=== PATIENT | female | born 1960 | race Caucasian/White ===

== ENCOUNTER 2019-05-17 17:12 | Emergency (ER) | payer BC, MEDICAID ==
[2019-05-17] MEDS ORDERED: Ketorolac 60 MG/2 ML SDV IM ONE (18:02)
--- NOTE | 2019-05-17 18:08 | EDM.PDOC ---
ED HPI GENERAL MEDICAL PROBLEM - General Chief Complaint: Back Pain or Injury Stated Complaint: LOWER BACK PAIN Time Seen by Provider: 05/17/19 17:53 Source of Information: Reports: Patient History Limitations: Reports: No Limitations - History of Present Illness INITIAL COMMENTS - FREE TEXT/NARRATIVE: HISTORY AND PHYSICAL: History of present illness: Patient is a 58-year-old female who presents to the ED today with concern of mid to low back pain 1 week. Patient states she started noticing the back pain while at work as she was bending over and doing dishes at work. Patient states she has been taking Advil which does relieve her symptoms. Patient denies any trauma or injury to her back. Patient denies any loss or retention of bowel and bladder function or saddle anesthesia. Patient denies fever, chills, chest pain, shortness of breath, or cough. Denies headache, neck stiff ness, change in vision, syncope, or near syncope. Denies nausea, vomiting, abdominal pain, diarrhea, constipation, or dysuria. Has not noted any blood in urine or stool. Patient has been eating and drinking appropriately. Review of systems: As per history of present illness and below otherwise all systems reviewed and negative. Past medical history: As per history of present illness and as reviewed below otherwise noncontributory. Surgical history: As per history of present illness and as reviewed below otherwise noncontributory. Social history: See social history for further information Family history: As per history of present illness and as reviewed below otherwise noncontributory. Physical exam: General: Patient is alert, oriented, and in no acute distress. Patient sitting comfortably on exam table. HEENT: Atraumatic, normocephalic, pupils equal and reactive bilaterally, negative for conjunctival pallor or scleral icterus, mucous membranes moist, TMs normal bilaterally, throat clear, neck supple, nontender, trachea midline. No drooling or trismus noted. No meningeal signs. No hot potato voice noted. Lungs: Clear to auscultation, breath sounds equal bilaterally, chest nontender. Heart: S1S2, regular rate and rhythm without overt murmur Abdomen: Soft, nondistended, nontender. Negative for masses or hepatosplenomegaly. Negative for costovertebral tenderness. Pelvis: Stable nontender. Genitourinary: Deferred. Rectal: Deferred. Skin: Intact, warm, dry. No lesions or rashes noted. Extremities: Atraumatic, negative for cords or calf pain. Neurovascular unremarkable. SLR intact bilaterally. Patellar reflexes intact bilaterally. Heel /Toe gait intact. No obvious deformity of the complete spine. No step-offs, crepitus, or point tenderness to palpation of the spinous process of complete spine. Patient does have mild to moderate discomfort of palpation of the paraspinous muscles of the thoracic or lumbar area. Neuro: Awake, alert, oriented. Cranial nerves II through XII unremarkable. Cerebellum unremarkable. Motor and sensory unremarkable throughout. Exam nonfocal. Notes: Dr. Juan verbally involved in patient care. Patient states she was diagnosed with diabetes in the past and was placed on oral medication but had decided to stop taking this medication. Discussed the importance for follow-up with a primary care provider. Voices understanding and is agreeable to plan of care. Denies any further questions or concerns at this time. Diagnostics: UA, lumbar and thoracic x-ray Therapeutics: Toradol, Norflex Prescription: Diclofenac, Flexeril Impression: Thoracolumbar back pain H/O diabetes Plan: 1. Rest, ice and or heat the affected area. You can apply ice and or heat 15 minutes on, 15 minutes off. 2. Tylenol as directed for pain management or discomfort. Take medication as prescribed. 3. Follow up with the primary care provider as discussed. Return to the ED as needed and as discussed. Definitive disposition and diagnosis as appropriate pending reevaluation and review of above. Middle Back Pain Score (Numeric/FACES): 9 - Related Data Allergies Allergy/AdvReac Type Severity Reaction Status Date / Time No Known Allergies Allergy Verified 05/17/19 17:59 Home Meds: Home Meds Cyclobenzaprine [Flexeril] 10 mg PO TID PRN #9 tab 05/17/19 [Rx] Diclofenac Sodium [Voltaren] 75 mg PO BIDMEALS PRN #15 tab.cr 05/17/19 [Rx] Past Medical History - Past Health History Medical/Surgical History: Denies Medical/Surgical History Psychiatric History: Reports: Anxiety Social & Family History - Family History Family Medical History: Noncontributory - Tobacco Use Smoking Status *Q: Current Every Day Smoker Years of Tobacco use: 30 Packs/Tins Daily: 0.3 - Caffeine Use Caffeine Use: Reports: Coffee - Recreational Drug Use Recreational Drug Use: No - Living Situation & Occupation Living situation: Reports: , with Spouse Occupation: Employed ED ROS GENERAL - Review of Systems Review Of Systems: Comprehensive ROS is negative, except as noted in HPI. ED EXAM, GENERAL - Physical Exam Exam: See Below (See dictation) Course - Vital Signs Last Recorded V/S: Last Vital Signs Temp 98.5 F 05/17/19 17:56 Pulse 77 05/17/19 17:56 Resp 18 05/17/19 17:56 BP 155/101 H 05/17/19 17:56 Pulse Ox 97 05/17/19 17:56 - Orders/Labs/Meds Orders: Active Orders 24 hr Category Date Time Status Glucose [Blood Glucose Check, Bedside] [RC] ONETIME Care 05/17/19 18:46 Active Labs: Laboratory Tests 05/17/19 Range/Units 18:30 Urine Color YELLOW Urine Appearance CLEAR Urine pH 6.0 (5.0-8.0) Ur Specific [place] 1.015 (1.001-1.035) Urine Protein NEGATIVE (NEGATIVE) mg/dL Urine Glucose (UA) >=1000 (NEGATIVE) mg/dL Urine Ketones TRACE H (NEGATIVE) mg/dL Urine Occult Blood NEGATIVE (NEGATIVE) Urine Nitrite NEGATIVE (NEGATIVE) Urine Bilirubin NEGATIVE (NEGATIVE) Urine Urobilinogen 1.0 (<2.0) EU/dL Ur Leukocyte Esterase NEGATIVE (NEGATIVE) Meds: Medications Discontinued Medications Generic Name Dose Route Start Last Admin Trade Name Freq PRN Reason Stop Dose Admin Ketorolac Tromethamine 60 mg 05/17/19 18:02 05/17/19 18:26 Toradol IM 05/17/19 18:03 60 mg ONETIME ONE Administration Orphenadrine Citrate 60 mg 05/17/19 18:03 05/17/19 18:23 Norflex IM 05/17/19 18:04 60 mg NOW STA Administration Departure - Departure Time of Disposition: 19:03 Disposition: Home, Self-Care 01 Clinical Impression: Thoracolumbar back pain - Discharge Information Prescriptions: Cyclobenzaprine [Flexeril] 10 mg PO TID PRN #9 tab PRN Reason: Spasms Diclofenac Sodium [Voltaren] 75 mg PO BIDMEALS PRN #15 tab.cr PRN Reason: Pain Referrals: PCP,None [Primary Care Provider] - Forms: ED Department Discharge Additional Instructions: The following information is given to patients seen in the emergency department who are being discharged to home. This information is to outline your options for follow-up care. We provide all patients seen in our emergency department with a follow-up referral. The need for follow-up, as well as the timing and circumstances, are variable depending upon the specifics of your emergency department visit. If you don't have a primary care physician on staff, we will provide you with a referral. We always advise you to contact your personal physician following an emergency department visit to inform them of the circumstance of the visit and for follow-up with them and/or the need for any referrals to a consulting specialist. The emergency department will also refer you to a specialist when appropriate. This referral assures that you have the opportunity for follow-up care with a specialist. All of these measure are taken in an effort to provide you with optimal care, which includes your follow-up. Under all circumstances we always encourage you to contact your private physician who remains a resource for coordinating your care. When calling for follow-up care, please make the office aware that this follow-up is from your recent emergency room visit. If for any reason you are refused follow-up, please contact the [facility] Emergency Department at and asked to speak to the emergency department charge nurse. [facility] [address] [place] [id number] [place] [address] 1. Rest, ice and or heat the affected area. You can apply ice and or heat 15 minutes on, 15 minutes off. 2. Tylenol as directed for pain management or discomfort. Take medication as prescribed. 3. Follow up with the primary care provider as discussed. Return to the ED as needed and as discussed. - My Orders Last 24 Hours: My Active Orders 05/17/19 18:46 Glucose [Blood Glucose Check, Bedside] [] ONETIME - Assessment/Plan Last 24 Hours: My Active Orders 05/17/19 18:46 Glucose [Blood Glucose Check, Bedside] [] ONETIME
--- NOTE | 2019-05-17 19:01 | CR ---
Indication: Pain. Technique: Three views of the thoracic spine were obtained. Comparison: None Findings: The alignment of the thoracic spine is within normal limits. The vertebral body heights are well maintained. Intervertebral disc space heights are well maintained. Impression: No acute fracture. Dictated by Myrtle Leonard MD @ May 17 2019 7:00PM Signed by Dr. Myrtle Leonard @ May 17 2019 7:00PM
--- NOTE | 2019-05-17 19:01 | CR ---
Indication: Pain. Technique: Three views of the lumbar spine were obtained. Comparison: None Findings: 5 millimeters of anterolisthesis of L4 on L5 is identified. The vertebral body heights are well maintained. Facet joint arthropathy of the lower lumbar spine is identified. No fracture or subluxation is identified. Impression: Degenerative change of the lower lumbar spine. Dictated by Myrtle Leonard MD @ May 17 2019 6:59PM Signed by Dr. Myrtle Leonard @ May 17 2019 6:59PM
[2019-05-18 04:03] VITALS: BP 189/107; PULSE 72
== END 2019-05-17 19:16 | disposition home or self-care (01) ==
LOC: MW.ED 17:12
DX: M54.5 Low back pain (principal); F41.9 Anxiety disorder, unspecified; F17.210 Nicotine dependence, cigarettes, uncomplicated; Z79.899 Other long term (current) drug therapy
CPT/HCPCS: 72072; 72100; 81003; 82962; 96372; 99284; J1885; J2360

== ENCOUNTER 2021-09-20 16:38 | Emergency (ER) | payer BC, OTHER ==
[2021-09-20] MEDS ORDERED: Sodium Chloride 0.9% 1,000 ML IV ONE (20:16)
[2021-09-20] MEDS ORDERED: HYDROmorphone 2 MG/ML Syringe IVPUSH ONE (20:59)
[2021-09-20] MEDS ORDERED: Ondansetron 4 MG/2 ML SDV IVPUSH ONE (20:59)
[2021-09-20] MEDS ORDERED: Ketorolac 30 MG/ML SDV IVPUSH ONE (21:02)
[2021-09-20 21:40] LABS: BLOOD UREA NITROGEN,BUN 12 mg/dL (7.0-18.0); CARBON DIOXIDE,CO2 25.4 mmol/L (21.0-32.0); CHLORIDE,CL 98 mmol/L (98-107); GLUCOSE RANDOM 272 mg/dL (74-106); LIPASE 75 U/L (73-393); SODIUM,NA 133 mmol/L (136-145)
[2021-09-20] MEDS ORDERED: Iopamidol 755 MG/ML 500 ML Multipack Bottle IVPUSH STA (22:24)
[2021-09-21] MEDS ORDERED: Ciprofloxacin 500 MG Tab PO ONE (01:34)
[2021-09-21] MEDS ORDERED: Acetaminophen/HYDROcodone 325-5 MG Tab PO ONE (01:35)
[2021-09-21] MEDS ORDERED: metroNIDAZOLE 250 MG Tab PO ONE (01:35)
[2021-09-21 02:01] VITALS: BP 152/95; PULSE 82
== END 2021-09-21 02:01 | disposition home or self-care (01) ==
LOC: MW.ED 16:38
DX: K52.9 Noninfective gastroenteritis and colitis, unspecified (principal); N39.0 Urinary tract infection, site not specified
CPT/HCPCS: 36415; 74178; 80053; 81001; 83605; 83690; 85025; 87040; 87086; 87088; 87186; 96374; 96375; 99284; A9270; J1170; J1885; J2405; J7030; Q9967

== ENCOUNTER 2024-02-02 20:12 | Emergency (ER) | payer SELFPAY ==
[2024-02-02] MEDS: Diazepam 5 MG Tab PO STA (20:45)
[2024-02-02] MEDS: Ibuprofen 600 MG Tab PO ONE (20:46)
[2024-02-02] MEDS: Acetaminophen 500 MG Tab PO ONE (20:46)
[2024-02-02 23:31] VITALS: BP 160/80; PULSE 67
== END 2024-02-02 23:33 ==
LOC: MW.ED 20:12
DX: M62.838 Other muscle spasm (principal); E11.65 Type 2 diabetes mellitus with hyperglycemia
CPT/HCPCS: 82947; 99284; A9270; 99283

== ENCOUNTER 2024-05-07 21:34 | Emergency (ER) | payer SELFPAY ==
[2024-05-07] MEDS ORDERED: Sodium Chloride 0.9% 10 ML Syringe FLUSH PRN (21:58)
[2024-05-07 22:27] LABS: BASOPHILS ABSOLUTE AUTO 0.03 K/uL (0.00-0.20); BASOPHILS PERCENT AUTO 0.5 % (0.0-1.0); EOSINOPHILS ABSOLUTE AUTO 0.09 K/uL (0.00-0.45); EOSINOPHILS PERCENT AUTO 1.6 % (0.0-6.0); HEMOGLOBIN 14.2 g/dL (12.0-16.0); IMMATURE GRAN ABSOLUTE AUTO 0.01 K/uL (0.00-0.05); IMMATURE GRAN PERCENT AUTO 0.2 % (0.0-0.4); LYMPHOCYTES ABSOLUTE AUTO 2.37 K/uL (1.00-4.80); LYMPHOCYTES PERCENT AUTO 41.9 % (24.0-44.0); MEAN CORPUSCULAR HGB CONC 35.5 g/dL (32.0-36.0); MEAN CORPUSCULAR VOLUME 95.7 fL (83.0-99.0); MEAN PLATELET VOLUME 9.4 fL (9.4-12.3); MONOCYTES ABSOLUTE AUTO 0.55 K/uL (0.00-0.80); MONOCYTES PERCENT AUTO 9.7 % (0.0-8.0); NEUTROPHILS PERCENT AUTO 46.1 % (41.0-71.0); PLATELET COUNT,PLT 167 K/uL (150-400); RED BLOOD CELL COUNT 4.18 M/uL (4.10-5.30); WHITE BLOOD CELL COUNT,WBC 5.65 K/uL (3.9-11.3)
[2024-05-07] MEDS: Acetaminophen 500 MG Tab PO ONE (22:31)
[2024-05-07] MEDS: Meclizine 25 MG Tab PO ONE (22:31)
[2024-05-07] MEDS: Sodium Chloride 0.9% 1,000 ML IV ONE (22:37)
[2024-05-07 22:39] LABS: HEMOGLOBIN A1C 9.3 %
[2024-05-07 22:45] LABS: INR 1.13 (0.86-1.11)
[2024-05-07 22:58] LABS: APPEARANCE,URINE CLEAR; BILIRUBIN,URINE NEGATIVE (NEGATIVE); COLOR,URINE YELLOW; GLUCOSE,URINE 100 mg/dL (NEGATIVE); KETONES,URINE NEGATIVE (NEGATIVE); LEUKOCYTE ESTERASE,URINE NEGATIVE (NEGATIVE); NITRITE,URINE NEGATIVE (NEGATIVE); OCCULT BLOOD,URINE NEGATIVE (NEGATIVE); PROTEIN,URINE NEGATIVE (NEGATIVE); UROBILINOGEN,URINE 0.2 EU/dL (<2.0)
[2024-05-07 23:04] LABS: A/G RATIO 0.9 (0.9-1.6); ALBUMIN 3.6 g/dL (3.4-5.0); BILIRUBIN TOTAL 0.5 mg/dL (0.2-1.0); CALCIUM 8.5 mg/dL (8.5-10.1); CARBON DIOXIDE,CO2 22.5 mmol/L (21.0-32.0); CREATININE 0.6 mg/dL (0.6-1.0); EST CRCL DRUG DOSING (CG) 69.83 mL/min; MAGNESIUM 1.8 mg/dL (1.8-2.4); POTASSIUM,K 3.5 mmol/L (3.5-5.1); PROTEIN TOTAL,TP 7.6 g/dL (6.4-8.2)
[2024-05-07] MEDS: Iopamidol 755 MG/ML 500 ML Multipack Bottle IVPUSH ONE (23:37)
[2024-05-08] MEDS: Metoclopramide 10 MG/2 ML SDV IVPUSH ONE (00:31)
[2024-05-08 01:51] VITALS: BP 138/85; PULSE 90
== END 2024-05-08 01:35 | disposition home or self-care (01) ==
LOC: MW.ED 21:34
DX: R51.9 Headache, unspecified (principal); R42 Dizziness and giddiness; F10.920 Alcohol use, unspecified with intoxication, uncomplicated; E11.65 Type 2 diabetes mellitus with hyperglycemia; E79.89 Other specified disorders of purine and pyrimidine metabolism; M48.02 Spinal stenosis, cervical region
CPT/HCPCS: 36415; 70450; 70496; 70498; 71045; 80053; 80307; 81003; 82947; 83036; 83690; 83735; 83880; 84484; 85025; 85610; 87428; 93005; 96361; 96374; 99285; A9270; J2765; J7030; Q9967; 93010; 99284

== ENCOUNTER 2024-10-31 19:54 | Emergency (ER) | payer SELFPAY ==
[2024-10-31 20:06] VITALS: BP 149/79
[2024-10-31] MEDS: Lidocaine 1% 10 ML MDV INFILT ONE (20:18)
[2024-10-31] MEDS: Diphtheria,Pertussis(Acell),Tetanus Vaccine 0.5 ML Syringe IM ONE (20:18)
[2024-10-31 21:17] VITALS: PULSE 82
== END 2024-10-31 21:17 | disposition home or self-care (01) ==
LOC: MW.ED 19:54
DX: S61.211A Laceration without foreign body of left index finger without damage to nail, initial encounter (principal); E11.9 Type 2 diabetes mellitus without complications; F17.200 Nicotine dependence, unspecified, uncomplicated; Z79.899 Other long term (current) drug therapy; Z75.3 Unavailability and inaccessibility of health-care facilities; W26.8XXA Contact with other sharp object(s), not elsewhere classified, initial encounter; Z23 Encounter for immunization
CPT/HCPCS: 12001; 90471; 90715; 99282; J2003